=== PATIENT | female | born 1980 | race Caucasian/White ===

== ENCOUNTER → 2022-09-13 | Outpatient (CLI) | payer OTHER ==
[~2022-09-13] MED LIST: ALLEGRA180 MG PO; ATIVAN0.5 MG PO; BENADRYL50 MG PO; BENTYL10 MG PO; BIAXIN FILMTAB250 MG PO; CARAFATE1 G1 PO; CLARITIN10 MG PO; ENDOCET 325 MG-1 TA1 PO; HYDROXYZINE PAM25 M1 PO; IBUPROFEN600 MG PO; IRON FERROUS S325 MG PO; KEFLEX 500 MG E2 CAP PO; LUPRON DEPOT3.75 M1 IM; MOTRIN50 MG PO; NEURONTIN300 MG PO; NOLVADEX20 MG PO; NORCO 325 MG-51 TAB PO; OMEPRAZOLE MAGN20 MG PO; OXYCODONE HCL5 MG PO; PRENATAL1 TA1 PO; PROTONIX40 MG PO; Percocet 325 MG1 TAB PO; VENLAFAXINE HYD75 M3 PO; XANAX0.25 MG PO
== END | disposition home or self-care (01) ==
LOC: RAD 09:56
PROVIDERS: ATTEND Registered Nurse
DX: R06.02 Shortness of breath (principal); R05.9 Cough, unspecified

== ENCOUNTER → 2023-05-11 | Outpatient (CLI) | payer OTHER ==
[2023-05-11 15:08] LABS: BASO % 0.7 % (0.0-1.0); EOS # 0.3 10*3/uL (0.0-0.4); EOS % 5.6 % (1.0-4.0); HEMATOCRIT 42.4 % (37.0-47.0); LYMPH # 1.5 10*3/uL (1.3-4.4); LYMPH % 26.1 % (27.0-41.0); MEAN CORPUSCULAR HGB 30.8 pg (27.0-31.0); MEAN CORPUSCULAR HGB CONC 32.8 g/dl (33.0-37.0); MEAN PLATELET VOLUME 10.2 fl (9.6-12.3); MONO # 0.4 10*3/uL (0.1-1.0); MONO % 6.8 % (3.0-9.0); NEUT # 3.6 10*3/uL (2.3-7.9); NEUT % 60.6 % (47.0-73.0); PLATELET COUNT AUTOMATED 266 10*3/uL (130-400); RED BLOOD COUNT 4.51 10*6/uL (4.10-5.10); RED CELL DISTRI WIDTH 12.8 % (0-14.5); WHITE BLOOD COUNT 5.9 10*3/uL (4.8-10.8)
[2023-05-11 15:43] LABS: ALKALINE PHOSPHATASE 57 U/L (46-116); BUN 11 mg/dl (9-23); CHLORIDE 101 mmol/L (98-107); SGPT/ALT 26 U/L (10-49); TOTAL PROTEIN 7.5 gm/dL (6.0-8.0)
== END | disposition home or self-care (01) ==
LOC: LAB 14:30
PROVIDERS: ATTEND Nurse Practitioner Primary Care
DX: E72.12 Methylenetetrahydrofolate reductase deficiency (principal); E72.11 Homocystinuria; R63.5 Abnormal weight gain

== ENCOUNTER 2023-05-21 20:37 | Emergency (ER) | payer OTHER ==
[~2023-05-21] VITALS: Ht 162.5 cm; Wt 63.5 kg
[2023-05-21 21:07] LABS: BASO % 0.4 % (0.0-1.0); EOS # 0.3 10*3/uL (0.0-0.4); EOS % 3.8 % (1.0-4.0); HEMATOCRIT 39.8 % (37.0-47.0); LYMPH # 2.1 10*3/uL (1.3-4.4); LYMPH % 26.4 % (27.0-41.0); MEAN CELL VOLUME 92.6 fl (81.0-99.0); MEAN CORPUSCULAR HGB 31.4 pg (27.0-31.0); MEAN CORPUSCULAR HGB CONC 33.9 g/dl (33.0-37.0); MEAN PLATELET VOLUME 10.2 fl (9.6-12.3); MONO # 0.6 10*3/uL (0.1-1.0); MONO % 7.5 % (3.0-9.0); NEUT % 61.8 % (47.0-73.0); PLATELET COUNT AUTOMATED 271 10*3/uL (130-400); RED CELL DISTRI WIDTH 12.5 % (0-14.5); WHITE BLOOD COUNT 8.1 10*3/uL (4.8-10.8)
[2023-05-21 21:34] LABS: POTASSIUM 3.3 mmol/L (3.4-5.1); TOTAL PROTEIN 7.1 gm/dL (6.0-8.0)
[2023-05-21 21:50] LABS: BILIRUBIN Negative (Negative); BLOOD Negative (Negative); CLARITY Clear (Clear); COLOR Yellow (Yellow); GLUCOSE Negative (Negative); KETONE Negative (Negative); LEUKO ESTERASE Trace (Negative); NITRITE Negative (Negative); PH 6.5 (4.5-8.0); SPECIFIC GRAVITY 1.015 (1.001-1.030)
[2023-05-21 22:00] LABS: BACTERIA TRACE
[2023-05-21 22:01] LABS: RBC 0-2 rbc/hpf (0-2)
[2023-05-21] MEDS ORDERED: Phenergan25 MG PO (22:15)
== END 2023-05-21 22:34 | disposition home or self-care (01) ==
LOC: ED 20:37
PROVIDERS: Nurse Practitioner Family
DX: K29.70 Gastritis, unspecified, without bleeding (principal); Z87.442 Personal history of urinary calculi; Z91.041 Radiographic dye allergy status; Z88.8 Allergy status to other drugs, medicaments and biological substances; Z91.013 Allergy to seafood; Z90.13 Acquired absence of bilateral breasts and nipples; Z98.890 Other specified postprocedural states

== ENCOUNTER → 2023-06-01 | Outpatient (CLI) | payer OTHER ==
[~2023-06-01] MED LIST changes: +Phenergan25 MG PO
== END | disposition home or self-care (01) ==
LOC: US 07:21
PROVIDERS: ATTEND Nurse Practitioner Family
DX: R10.9 Unspecified abdominal pain (principal)

== ENCOUNTER → 2023-07-01 | Outpatient (CLI) | payer OTHER | END | disposition home or self-care (01) | LOC: LAB 16:12 | PROVIDERS: ATTEND Nurse Practitioner Primary Care | DX: R10.13 Epigastric pain (principal); R19.7 Diarrhea, unspecified ==